=== PATIENT | female | born 1960 | race Caucasian/White ===

== ENCOUNTER 2016-08-01 21:39 | Emergency (ER) | payer SELFPAY ==
[~2016-08-01] VITALS: Ht 162.6 cm; Wt 77.0 kg
[~2016-08-01 21:39] MED LIST: AMLO5TAB4 PO; OMEP20CA9 PO; ONDA4TAB35 PO; PRED20TA PO
[2016-08-01 21:41] VITALS: Ht 162.6 cm; Wt 77.0 kg
== END 2016-08-01 22:59 | disposition left against medical advice (07) ==
LOC: E/R 21:39
DX: Z53.21 Procedure and treatment not carried out due to patient leaving prior to being seen by health care provider (principal)

== ENCOUNTER 2017-03-07 10:03 | Emergency (ER) | payer OTHER ==
[~2017-03-07] VITALS: Ht 165.1 cm; Wt 60.0 kg
[2017-03-07 10:04] VITALS: Ht 165.1 cm; Wt 60.0 kg
[2017-03-07] MEDS ORDERED: ONDANSETRON 4 MG INJ IV STA (10:15)
[2017-03-07] MEDS ORDERED: HYDROmorphONE 1 MG/ML SYG IV STA (10:15)
[2017-03-07 10:48] LABS: BASOPHILS % 0.3 % (0.0-2.0); EOSINOPHILS % 0.5 % (0.0-7.0); HEMATOCRIT 42.5 % (37.0-47.0); HEMOGLOBIN 14.1 g/dl (12.0-16.0); LYMPHOCYTES # 1.9 10^3/ul (0.8-2.9); LYMPHOCYTES % 25.3 % (15.0-51.0); MEAN CORPUSCULAR HEMOGLOBIN 26.4 pg (29.0-33.0); MEAN CORPUSCULAR HGB CONC 33.2 g/dl (32.0-37.0); MEAN CORPUSCULAR VOLUME 79.4 fl (82.0-101.0); MEAN PLATELET VOLUME 10.1 fl (7.4-10.4); MONOCYTE # 0.4 10^3/ul (0.3-0.9); MONOCYTES % 4.8 % (0.0-11.0); NEUTROPHIL # 5.1 10^3/ul (1.6-7.5); PLATELET COUNT 277 10^3/UL (140-415); RED BLOOD COUNT 5.35 10^6/ul (4.20-5.40); WHITE BLOOD COUNT 7.4 10^3/ul (4.8-10.8)
[2017-03-07 11:15] LABS: ALANINE AMINOTRANSFERASE 76 IU/L (13-69); ALBUMIN 4.3 g/dl (3.3-4.9); ALBUMIN/GLOBULIN RATIO 1.02; ALKALINE PHOSPHATASE 189 IU/L (42-121); ANION GAP 17 (8-16); ASPARTATE AMINO TRANSFERASE 32 IU/L (15-46); BILIRUBIN,INDIRECT 0.3 mg/dl (0-1.1); BILIRUBIN,TOTAL 0.3 mg/dl (0.2-1.3); BLOOD UREA NITROGEN 12 mg/dl (7-20); CALCIUM 10.9 mg/dl (8.4-10.2); CARBON DIOXIDE 27 mmol/L (21-31); CHLORIDE 105 mmol/L (97-110); CREATININE 0.57 mg/dl (0.44-1.00); GLUCOSE 122 mg/dl (70-220); POTASSIUM 3.9 mmol/L (3.5-5.1); SODIUM 145 mmol/L (135-144); TOTAL PROTEIN 8.5 g/dl (6.1-8.1)
[2017-03-07 11:28] LABS: TROPONIN-I < 0.012 ng/ml (0.00-0.12)
[2017-03-07 11:38] LABS: ADD UMIC NO; UR ASCORBIC ACID NEGATIVE (NEGATIVE); UR BILIRUBIN (Dip) NEGATIVE (NEGATIVE); UR BLOOD (Dip) NEGATIVE (NEGATIVE); UR CLARITY CLEAR (CLEAR); UR COLOR STRAW (YELLOW); UR GLUCOSE (Dip) NEGATIVE (NEGATIVE); UR KETONES (Dip) NEGATIVE (NEGATIVE); UR LEUKOCYTE ESTERASE (Dip) NEGATIVE Leu/ul (NEGATIVE); UR NITRITE (Dip) NEGATIVE (NEGATIVE); UR SPECIFIC GRAVITY (Dip) 1.005 (1.003-1.030); UR TOTAL PROTEIN (Dip) NEGATIVE (NEGATIVE); UR UROBILINOGEN (Dip) NEGATIVE (NEGATIVE)
--- NOTE | 2017-03-07 11:47 | RADRPT ---
PROCEDURE: CT Abdomen and pelvis without contrast. CLINICAL INDICATION: Weakness, nausea and vomiting. Abdominal pain. TECHNIQUE: CT scan of the abdomen and pelvis without contrast was performed on a multidetector hig h-resolution CT scan. . Coronal and sagittal reformatted images were obtained from the axial [facility] e images. Standard CT scan of the abdomen pelvis without contrast protocols were performed. The total exam CTDI equals 11.8 mGy and the total exam DLP equals 670.38 mGy-cm. One or more of the following dose reduction techniques were used: - Automated exposure control. - Adjustment of the mA and/or kV according to patient size. Use of iterative reconstruction technique. Dicom images are available COMPARISON: None. FINDINGS: The kidneys are normal in size without calcified renal calculi or intra renal masses bilaterally. Th ere is mild bilateral pelvocaliectasis slightly larger on the right but no definite hydronephrosis. No calcified ureteral calculi. Urinary bladder is unremarkable. The uterus is retroverted. There is globular enlargement suggesting underlying leiomyomatous uterus. No evidence of adnexal masses. Negative for intra-abdominal free air, free fluid, abscesses or lymphadenopathy. Status post cholecystectomy without evidence of biliary ductal dilation. The liver is normal in size with a punctate calcification within the central superior right lobe of the liver consistent with old granulomatous disease. No other focal hepatic lesions. Spleen pancreas and adrenal glands are unremarkable. The stomach, small bowel, large bowel and appendix are unremarkable. Ventral midline lower abdominal wall changes consistent with previous postsurgical changes. There is a tiny fat containing umbilical hernia without herniated bowel or strangulation. Atherosclerosis of the aorta but no aneurysm. Bilateral basilar calcified granuloma. Bibasilar emphysema. Degenerative changes of the lower thorac ic and lumbar spine without acute osseous findings are osteoblastic/osteolytic lesions. IMPRESSION: 1. Retroverted globular enlargement of the uterus suggesting underlying leiomyomatous uterus. 2. Status post cholecystectomy without biliary ductal dilation. 3. No calcified urinary calculi or obstructive uropathy. 4. Unremarkable appendix. No CT evidence of appendicitis. 5. Tiny fat containing umbilical hernia without herniated bowel or strangulation. 6. Bibasilar and liver old granulomatous disease. RPTAT:AAJJ B Monroe, Physician Date Time Electronically viewed and signed by Amanda Childress Physician on 03/07/2017 11:47 BM/
[2017-03-07] MEDS ORDERED: ONDA4TAB14 PO (12:24)
[2017-03-07] MEDS ORDERED: HYDR-902 PO (12:24)
--- NOTE | 2017-03-07 12:26 | ERD ---
ER Documentation Chief Complaint Chief Complaint MID ABDOMINAL PAIN,N/V,SOB.HISTORY OF H PYLORI HPI Patient is a 56-year-old female with hypertension who presents with abdominal pain. She also has shortness of breath and dizziness. Her symptoms started at 6 AM. The symptoms have been constant. She has a history of H pylori infection. She has had no treatment for this pain as of yet. Upon review of old medical records this is the patient's eighth visit to the ER since 2009. She says her primary doctor is at [facility]. ROS All systems reviewed and are negative except as per history of present illness. Medications Home Meds Active Scripts Ondansetron (Ondansetron Odt) 4 Mg Tab.rapdis, 4 MG PO Q6H Y for NAUSEA AND/OR VOMITING, #10 TAB Prov:EDWIGE BENAVIDEZ MD 03/07/17 Hydrocodone/Acetaminophen ([place] 10-325 Tablet) 1 Each Tablet, 1 TAB PO Q6H Y for PAIN, #7 TAB Prov:EDWIGE BENAVIDEZ MD 03/07/17 Omeprazole* (Prilosec*) 20 Mg Capsule.dr, 20 MG PO DAILY, #30 CAP Prov:ZULMA DENISE MD 12/09/14 Amlodipine Besylate* (Norvasc*) 5 Mg Tablet, 5 MG PO DAILY, #30 TAB Prov:ZULMA DENISE MD 12/09/14 Reported Medications Clarithromycin* (Clarithromycin*) 500 Mg Tablet, 500 MG PO BID for 14 Days, TAB 03/07/17 Amoxicillin* (Amoxicillin*) 500 Mg Cap, 500 MG PO BID for 14 Days, #20 CAP 03/07/17 Famotidine* (Famotidine*) 20 Mg Tablet, 20 MG PO DAILY, #30 TAB 03/07/17 Discontinued Scripts Prednisone* (Prednisone*) 20 Mg Tab, 60 MG PO DAILY for 5 Days Prov:ZULMA DENISE MD 12/09/14 Ondansetron Hcl* (Zofran* ODT) 4 mg -ODT Tab.disper, 4 MG PO Q6 Y for NAUSEA AND /OR VOMITING, #30 TAB Prov:ZULMA DENISE MD 12/09/14 Allergies Allergies: Coded Allergies: No Known Allergies (Verified Allergy, Mild, 12/09/14) PMhx/Soc History of Surgery: Yes () Anesthesia Reaction: No Hx Neurological Disorder: No Hx Respiratory Disorders: Yes (ASTHMA) Hx Cardiac Disorders: Yes (HTN) Hx Psychiatric Problems: No Hx Miscellaneous Medical Probl: Yes (H. PYLORI) Hx Alcohol Use: No Hx Substance Use: No Hx Tobacco Use: No Smoking Status: Never smoker FmHx Family History: No diabetes Physical Exam Vitals Vital Signs Date Time Temp Pulse Resp B/P Pulse Ox O2 Delivery O2 Flow Rate FiO2 03/07/17 12:58 98.0 72 20 118/75 98 Room Air 03/07/17 12:15 67 20 120/85 98 Room Air 03/07/17 10:15 98.4 72 20 149/70 100 Room Air 03/07/17 10:04 97.4 96 20 213/106 98 Physical Exam Const: Moderate distress secondary to pain Head: Atraumatic Eyes: Normal Conjunctiva ENT: Normal External Ears, Nose and Mouth. Neck: Full range of motion..~ No meningismus. Resp: Clear to auscultation bilaterally Cardio: Regular rate and rhythm, no murmurs Abd: Soft, diffuse tenderness to palpation without rebound or guarding Skin: No petechiae or rashes Back: No midline or flank tenderness Ext: No cyanosis, or edema Neur: Awake and alert Psych: Normal Mood and Affect Result Diagram: 03/07/17 1030 03/07/17 1030 Results 24 hrs Laboratory Tests Test 03/07/17 10:30 03/07/17 11:05 White Blood Count 7.410^3/ul Red Blood Count 5.3510^6/ul Hemoglobin 14.1g/dl Hematocrit 42.5% Mean Corpuscular Volume 79.4fl Mean Corpuscular Hemoglobin 26.4pg Mean Corpuscular Hemoglobin Concent 33.2g/dl Red Cell Distribution Width 15.0% Platelet Count 78378^3/UL Mean Platelet Volume 10.1fl Neutrophils % 69.0% Lymphocytes % 25.3% Monocytes % 4.8% Eosinophils % 0.5% Basophils % 0.3% Nucleated Red Blood Cells % 0.0/100WBC Neutrophils # 5.110^3/ul Lymphocytes # 1.910^3/ul Monocytes # 0.410^3/ul Eosinophils # 0.010^3/ul Basophils # 0.010^3/ul Nucleated Red Blood Cells # 0.010^3/ul Sodium Level 145mmol/L Potassium Level 3.9mmol/L Chloride Level 105mmol/L Carbon Dioxide Level 27mmol/L Anion Gap 17 Blood Urea Nitrogen 12mg/dl Creatinine 0.57mg/dl Glucose Level 122mg/dl Calcium Level 10.9mg/dl Total Bilirubin 0.3mg/dl Direct Bilirubin 0.00mg/dl Indirect Bilirubin 0.3mg/dl Aspartate Amino Transf (AST/SGOT) 32IU/L Alanine Aminotransferase (ALT/SGPT) 76IU/L Alkaline Phosphatase 189IU/L Troponin I < 0.012ng/ml Total Protein 8.5g/dl Albumin 4.3g/dl Globulin 4.20g/dl Albumin/Globulin Ratio 1.02 Lipase 31U/L Urine Color STRAW Urine Clarity CLEAR Urine pH 8.0 Urine Specific [place] 1.005 Urine Ketones NEGATIVEmg/dL Urine Nitrite NEGATIVEmg/dL Urine Bilirubin NEGATIVEmg/dL Urine Urobilinogen NEGATIVEmg/dL Urine Leukocyte Esterase NEGATIVELeu/ul Urine Hemoglobin NEGATIVEmg/dL Urine Glucose NEGATIVEmg/dL Urine Total Protein NEGATIVEmg/dl Current Medications Medications (Trade) Dose Ordered Sig/Rosemary Route PRN Reason Start Time Stop Time Status Last Admin Dose Admin Hydromorphone HCl (Dilaudid) 1 mg ONCE STAT IV 03/07/17 10:15 03/07/17 10:17 DC Ondansetron HCl (Zofran Inj) 4 mg ONCE STAT IV 03/07/17 10:15 03/07/17 10:17 DC 03/07/17 10:34 Procedures/MDM EKG read by me: Rate/Rhythm: Regular rate and rhythm at a rate of 62 Intervals: Normal Impression: No evidence of ischemia or arrhythmia CT abdomen pelvis shows no acute process per radiology. Patient is a 56-year-old female presents with acute abdominal pain with shortness of breath and dizziness. I do not find any signs of serious etiology. At this point I doubt cholecystitis, pancreatitis, appendicitis, or bowel obstruction. I doubt acute coronary syndrome. The patient will be discharged home but will need to follow-up closely with her primary doctor within 24 hours. She can return sooner for any worsening symptoms. The patient understands the plan is okay for discharge at this time. She was given copies of her laboratory studies and imaging test prior to discharge. Departure Diagnosis: Primary Impression: Abdominal pain Abdominal location: generalized Qualified Code: R10.84 - Generalized abdominal pain Condition: Fair Patient Instructions: Abdominal Pain Referrals: Your doctor Additional Instructions: Visite a [facility] fernie carbone para un EXAMEN.Regrese a estas instalaciones si no se mejora natalie esperbamos o natalie le dijimos. EDWIGE BENAVIDEZ MD Mar 07, 2017 12:26
[2017-03-07] MEDS ORDERED: FAMO20TA18 PO (12:40)
[2017-03-07] MEDS ORDERED: AMOX500C2 PO (12:40)
[2017-03-07] MEDS ORDERED: CLAR500T PO (12:41)
[2017-03-07 12:58] VITALS: BP 118/75; PULSE 72; RESP 20; TEMP 98
== END 2017-03-07 13:02 | disposition home or self-care (01) ==
LOC: E/R 10:03
DX: R10.84 Generalized abdominal pain (principal); I10 Essential (primary) hypertension; J45.909 Unspecified asthma, uncomplicated; R40.2142 Coma scale, eyes open, spontaneous, at arrival to emergency department; R40.2252 Coma scale, best verbal response, oriented, at arrival to emergency department; R40.2362 Coma scale, best motor response, obeys commands, at arrival to emergency department
CPT/HCPCS: 36415; 74176; 80053; 81003; 83690; 84484; 85025; 96374; J2405; Z7502; Z7610